=== PATIENT | male | born 1965 | race Caucasian/White ===

== ENCOUNTER 2019-07-11 15:49 | Emergency (ER) | payer OTHER ==
[~2019-07-11] VITALS: Ht 188 cm; Wt 86.2 kg
[2019-07-11 15:58] VITALS: BP 158/89
--- NOTE | 2019-07-11 15:58 | NUR ---
ED Nurse Note: Patient walked into ED complaining of lower extremity edema. He keeps pointing to his feet stating they are swollen, but there does not appear to be swelling. Patient complaining of 8/10 aching pain in feet. Patient appears to be on a stimulant, very restless. No acute distress noted.
[2019-07-11] MEDS ORDERED: Ketorolac 30mg Inj IM ONE (16:15)
--- NOTE | 2019-07-11 16:24 | Emergency Room Report ---
History of Present Illness General Chief Complaint: Pain Source: Patient Present Illness HPI 53-year-old male with unknown past medical history appears to be undergoing unknown stimulant here complaining of bilateral feet pain times today. Patient reports that he has been walking on his feet for long time, he is from [place] and recently got to [place]. Patient rating pain 10 out of 10 without radiation. Complains of swelling in the legs at the moment and keeps pointing to edema however there is no swelling. Injuries and medical condition. Calluses noted in the palm of his feet. Patient appears to be possibly homeless as of methamphetamine. Patient wants his feet to be cleaned. Allergies: Coded Allergies: No Known Allergies (Unverified , 07/11/19) Patient History Past Medical History: see triage record Past Surgical History: unable to obtain Pertinent Family History: none Immunizations: UTD Reviewed Nursing Documentation: PMH: Agreed; PSxH: Agreed Nursing Documentation-PMH Past Medical History: No Stated History Review of Systems All Other Systems: negative except mentioned in HPI Physical Exam Vital Signs Date Time Temp Pulse Resp B/P (MAP) Pulse Ox O2 Delivery O2 Flow Rate FiO2 07/11/19 15:58 98.1 80 16 158/89 (112) 99 Room Air Sp02 EP Interpretation: reviewed, normal General Appearance: no apparent distress, alert, GCS 15, non-toxic Head: normocephalic, atraumatic Eyes: bilateral eye normal inspection, bilateral eye PERRL ENT: hearing grossly normal, normal pharynx, no angioedema, normal voice Neck: full range of motion, supple/symm/no masses Respiratory: chest non-tender, lungs clear, normal breath sounds, no rhonchi, no wheezing, speaking full sentences Cardiovascular #1: regular rate, rhythm, no edema, no murmur, normal capillary refill Cardiovascular #2: 2+ dorsalis pedis (R), 2+ dorsalis pedis (L) Gastrointestinal: normal bowel sounds, non tender, soft, non-distended, no guarding, no rebound Rectal: deferred Genitourinary: normal inspection, no CVA tenderness Musculoskeletal: back normal, normal range of motion, calf tenderness, gait/ station normal, non-tender Neurologic: alert, motor strength/tone normal, oriented x3, sensory intact, responsive, speech normal Psychiatric: judgement/insight normal, memory normal, mood/affect normal, no suicidal/homicidal ideation Skin: no rash Lymphatic: no adenopathy Medical Decision Making PA Attestation All diagnoses and treatment plans were reviewed and discussed with my supervising physician Dr. Espinosa Diagnostic Impression: Primary Impression: Chronic pain of both feet ER Course 53-year-old male with unknown past medical history appears to be undergoing unknown stimulant here complaining of bilateral feet pain times today. Patient reports that he has been walking on his feet for long time, he is from [place] and recently got to [place]. Patient rating pain 10 out of 10 without radiation. Complains of swelling in the legs at the moment and keeps pointing to edema however there is no swelling. Injuries and medical condition. Calluses noted in the palm of his feet. Patient appears to be possibly homeless as of methamphetamine. Patient wants his feet to be cleaned. Ddx considered but are not limited to: foot fracture, foot sprain, foot contusion, foot strain, chronic foot pain Vital signs: are WNL, pt. is afebrile H&PE are most consistent with: chronic foot pain ORDERS: No x-ray necessary as patient not following to himself. Ibuprofen ED INTERVENTIONS: Toradol, cleaning of both feet, Darek bandage DISCHARGE: At this time pt. is stable for d/c to home. Will provide printed patient care instructions, and any necessary prescriptions. Care plan and follow up instructions have been discussed with the patient prior to discharge. Patient to follow-up with her primary care provider, possibly be seen by manager of administration. This time after imaging or testing is needed. Patient has obvious calluses on both feet for repeated walking on both feet without enough support however not indication for any imaging or stronger pain meds. Last Vital Signs Date Time Temp Pulse Resp B/P (MAP) Pulse Ox O2 Delivery O2 Flow Rate FiO2 07/11/19 15:58 98.1 80 16 158/89 (112) 99 Room Air Disposition: HOME, SELF-CARE Condition: Stable Scripts Diclofenac Sodium (VOLTAREN) 100 Gm Gel..gram. 2 GM TP TID, #100 GM Prov: Fernando Patino 07/11/19 Ibuprofen (Ibu) 800 Mg Tablet 800 MG PO TID, #30 TAB Prov: Fernando Patino 07/11/19 Patient Instructions: Foot Contusion Additional Instructions: Take medication as directed, follow-up with your primary care provider, avoid walking long distances, avoid strenuous physical activity Fernando Patino Jul 11, 2019 16:24
[2019-07-11] MEDS ORDERED: IBU800 MG PO (16:25)
[2019-07-11] MEDS ORDERED: VOLTAREN100 G1 TP (16:25)
[2019-07-11 16:58] VITALS: BP 156/90
--- NOTE | 2019-07-11 16:58 | NUR ---
ER DISCHARGE NOTE: Patient is cleared to be discharged per Fernando MECHANICAL SHOVEL OPERATOR, pt is aox4, on room air, with stable vital signs. Verbalized understanding of all DC instructions, ID band removed.
== END 2019-07-11 16:58 | disposition home or self-care (01) ==
LOC: EMR 16:08
DX: G89.29 Other chronic pain (principal); M79.672 Pain in left foot; M79.671 Pain in right foot
CPT/HCPCS: 96372; 99283; J1885